=== PATIENT | male | born 1970 | race Caucasian/White ===

== ENCOUNTER 2024-03-02 11:54 | Emergency (ER) | payer MEDICARE, SELFPAY ==
--- NOTE | ~2024-03-02 | XR_ITS ---
EXAMINATION: XR chest 1V portable 03/02/2024 12:27 INDICATION: Respiratory infection PROCEDURE: AP portable chest COMPARISON: 10/16/2015 FINDINGS: The lungs are clear. The cardiomediastinal silhouette is within normal limits. There are no pleural effusions. There is no pneumothorax suspected. IMPRESSION: 1: NO ACUTE CARDIOPULMONARY DISEASE. Reviewed, dictated and finalized at location B.
[2024-03-02 12:03] VITALS: BP 140/100; PULSE 118; RESP 20; TEMP 36.6; O2SAT 97
--- NOTE | 2024-03-02 12:19 | ED.URI ---
HPI - URI/Sore Throat General Chief Complaint: Upper Respiratory Infection Stated Complaint: uri Time Seen by Provider: 03/02/24 12:03 History of Present Illness HPI Narrative: about 3 weeks ago patient started having URI symptoms, was given a course of steroids and antibiotics, and cough medicine, he overall 2 days are started having some abdominal pain, diarrhea, nausea , and fevers. Related Data Allergies Allergy/AdvReac Type Severity Reaction Status Date / Time Penicillins Allergy Mild Unknown Verified 03/02/24 12:24 garlic Allergy Unknown Dyspnea / Verified 03/02/24 12:24 SOB ibuprofen Allergy Unknown Hives / Verified 03/02/24 12:24 Red Face Review of Systems Review of Systems: All systems reviewed & are unremarkable except as noted in HPI and below Exam Narrative: EXAMINATION OF ORGAN SYSTEMS/BODY AREAS: Constitutional: Vital signs per nursing GENERAL:[No acute distress, non-toxic appearing.] HEAD: Normal with no signs of head trauma. EYES: EOMI, conjunctiva normal ENT: Hearing grossly intact LUNGS: Nonlabored breathing. wheezing bilaterally HEART: tachycardic ABD: [Soft], mildly tender to palpation left abdomen EXT: Normal range of motion SKIN: [No rashes or lesions.] NEURO: [Alert and oriented x 3. No gross focal sensory or strength deficits.] PSYCH: Normal affect Course Vital Signs Vital signs: Vital Signs Temperature 97.9 F 03/02/24 12:03 Pulse Rate 118 H 03/02/24 12:03 Respiratory Rate 20 03/02/24 12:03 Blood Pressure 140/100 H 03/02/24 12:03 Pulse Oximetry 97 03/02/24 12:03 Oxygen Delivery Room Air 03/02/24 12:03 Temperature 98.5 F 03/02/24 14:25 Pulse Rate 99 03/02/24 14:25 Respiratory Rate 20 03/02/24 14:25 Blood Pressure 134/67 03/02/24 14:25 Pulse Oximetry 96 03/02/24 14:25 Oxygen Delivery Room Air 03/02/24 12:03 MDM - URI/Sore Throat MDM Narrative Medical decision making narrative: ED COURSE AND MEDICAL DECISION MAKINM with cough and wheezing likely due to acute COPD exacerbation based on history and exam; also some GI symptoms. Patient is hemodynamically stable. Nebulizer treatments are started and steroids and zofran/loperamide given, IVF given Patient monitored in the ED for a couple of hours and on reevaluation is feeling significantly better. No respiratory distress or accessory muscle use. Good air movement bilateral lungs; abdomen soft and nontender. No longer nauseous and no more diarrhea. Prescriptions for [zofran, loperamide, steroid course] provided. He is given strict return precautions and patient is discharged in stable/improved condition. Lab Data 03/02/24 12:29 03/02/24 12:29 Labs: Lab Results 03/02/24 03/02/24 Range/Units 12:17 12:29 WBC 11.0 H (4.5-10.0) K/mm3 RBC 5.15 (4.6-6.20) M/mm3 Hgb 13.4 L (14.0-18.0) g/dL Hct 41.6 L (42.0-52.0) % MCV 80.8 (80-100) fl MCH 26.0 (26-34) pg MCHC 32.2 (32-36) g/dl RDW 14.9 H (11.5-14.5) % Plt Count 260 (150-375) k/mm3 MPV 10.3 (7.4-10.4) fl Immature Gran % (Auto) 0.3 (0-0.5) % Neut % (Auto) 76.7 H (45.5-73.1) % Lymph % (Auto) 13.1 L (18.3-44.2) % Union % (Auto) 9.0 H (2.6-8.5) % Eos % (Auto) 0.5 (0-4.4) % Baso % (Auto) 0.4 (0.2-1.2) % Lymph # (Auto) 1.45 (0.9-3.2) K/mm3 Union # (Auto) 1.0 H (0.1-0.6) K/mm3 Eos # (Auto) 0.1 (0-0.3) K/mm3 Baso # (Auto) 0.0 (0.0-0.1) K/mm3 Abs Immat Gran (auto) 0.03 (0.00-0.031) K/mm3 Absolute Neuts (auto) 8.5 H (1.3-6.7) K/mm3 Absolute Nucleated RBC 0.000 (0.0-0.012) K/mm3 Nucleated RBC % 0.0 (0.0-0.2) % Sodium 138 (137-145) mmol/L Potassium 3.9 (3.4-5.0) mmol/L Chloride 106 (98-107) mmol/L Carbon Dioxide 25 (22-30) mmol/L Anion Gap 7 (4-12) mmol/L BUN 8 L (9-20) mg/dL Creatinine 1.50 H (0.7-1.3) mg/dL Estim Creat Clear Calc 67 ml/min Estimated GFR 49 L (59 - )
[2024-03-02 12:25] VITALS: BP 132/75; PULSE 110; RESP 20; O2SAT 98
[2024-03-02] MEDS: predniSONE 20 MG TABLET 40 MG PO (12:30)
[2024-03-02] MEDS: LACTATED RINGERS 1,000 ML 999 ML IV CONT (12:31)
[2024-03-02 12:36] LABS: Basophils Percent Auto 0.4 % (0.2-1.2); Eosinophils Absolute Auto 0.1 K/mm3 (0-0.3); Eosinophils Percent Auto 0.5 % (0-4.4); Hematocrit 41.6 % (42.0-52.0); Hemoglobin 13.4 g/dL (14.0-18.0); Immature Granulocyte Absolute 0.03 K/mm3 (0.00-0.031); Immature Granulocyte Percent A 0.3 % (0-0.5); Lymphocytes Absolute Auto 1.45 K/mm3 (0.9-3.2); Lymphocytes Percent Auto 13.1 % (18.3-44.2); Mean Corpuscular HGB Conc 32.2 g/dl (32-36); Mean Corpuscular Volume 80.8 fl (80-100); Mean Platelet Volume 10.3 fl (7.4-10.4); Neutrophils Absolute Auto 8.5 K/mm3 (1.3-6.7); Neutrophils Percent Auto 76.7 % (45.5-73.1); Platelet Count Result 260 k/mm3 (150-375); Red Blood Count 5.15 M/mm3 (4.6-6.20); Red Cell Distribution Width 14.9 % (11.5-14.5)
[2024-03-02] MEDS: ALBUTEROL SULFATE NEB 2.5 MG/3 ML INH 15 MG INHALATION (12:37)
[2024-03-02 12:38] VITALS: PULSE 117; RESP 20
[2024-03-02] MEDS: IPRATROPIUM BR 0.02% INH SOLN 0.5 MG/2.5 ML VIAL 1 MG INHALATION (12:38)
[2024-03-02 12:50] LABS: Alanine Aminotransferase 29 U/L (6-50); Albumin Level 4.2 g/dL (3.5-5.1); Alkaline Phosphatase 115 U/L (38-126); Anion Gap 7 mmol/L (4-12); Aspartate Amino Transferase 35 U/L (17-59); Bilirubin,Total 0.7 mg/dL (0.2-1.3); Blood Urea Nitrogen 8 mg/dL (9-20); Calcium 9.6 mg/dL (8.4-10.2); Carbon Dioxide 25 mmol/L (22-30); Chloride 106 mmol/L (98-107); Estimated CRCL calculation 67 ml/min; Estimated Glomerular Filt Rate 49; Glucose 113 mg/dL (65-110); Potassium 3.9 mmol/L (3.4-5.0); Sodium 138 mmol/L (137-145)
[2024-03-02 13:08] LABS: Influenza A QL RT-PCR Negative (Negative); Influenza B QL RT-PCR Negative (Negative); RSV RNA, RT-PCR Negative (Negative); SARS-CoV-2 RNA PCR Negative (Negative)
[2024-03-02 13:52] VITALS: PULSE 127; RESP 20
[2024-03-02 14:11] VITALS: BP 128/74; PULSE 100; RESP 20; O2SAT 98
[2024-03-02 14:25] VITALS: BP 134/67; PULSE 99; RESP 20; TEMP 36.9; O2SAT 96
== END 2024-03-02 14:26 | disposition home or self-care (01) ==
PROVIDERS: Emergency Provider Emergency Medicine; PCP Nurse Practitioner
DX: J40 Bronchitis, not specified as acute or chronic (principal); R19.7 Diarrhea, unspecified; Z20.822 Contact with and (suspected) exposure to COVID-19
CPT/HCPCS: 36415; 71045; 80053; 85025; 87637; 94640; 96360; 99283; J7120; J7512

== ENCOUNTER 2024-03-03 18:37 | Emergency (ER) | payer MEDICARE, SELFPAY ==
--- NOTE | 2024-03-03 | ECG_ITS ---
[facility] [address] Test Date: 2024-03-03 Pat Name: Deangelo Sterling Department: Room: Gender: M Lead Mechanical Engineer: : [id number] Requested By: Ad Rodriguez Order Number: [id number] Jess MD: Harlan Holbrook M.D. Measurements Intervals [place] Rate: 123 P: 51 AR: 142 QRS: -24 QRSD: 80 T: 41 QT: 304 QTc: 436 Interpretive Statements SINUS TACHYCARDIA BORDERLINE LEFT AXIS DEVIATION [QRS AXIS < -20] POSSIBLE RIGHT VENTRICULAR CONDUCTION DELAY [RSR (QR) IN V1/V2] No previous ECG available for comparison Electronically Signed On 03-05-2024 14:13:42 CDT by Harlan Holbrook M.D.
--- NOTE | 2024-03-03 18:44 | ED.ALLEREA ---
HPI - Allergic Reaction General Chief complaint: Allergic Reaction <SENTHIL Burns Last Filed: 03/04/24 16:56> Stated complaint: swelling to tongue <SENTHIL Burns Last Filed: 03/04/24 16:56> Time Seen by Provider: 03/03/24 18:42 <SENTHIL Burns Last Filed: 03/04/24 16:56> Focused HPI: Patient is a 53-year-old male who presents the ED with report of tongue swelling. Patient reports he was seen in the ED here yesterday, diagnosed with viral syndrome, URI. He was prescribed prednisone, Zofran, loperamide, Bentyl. He states approximately 1 hour ago today he noticed a small area of discomfort on his left sided tongue. He then developed swelling of his tongue. He reports difficulty swallowing and speaking due to the swelling. Denies difficulty breathing. Patient took 50mg of benadryl prior to arrival. Patient denies history of similar reactions. He is also on lisinopril for history of hypertension. GENERAL: Well-appearing, morbidly obese with BMI of 40.7, and in no acute distress. HEAD: Normocephalic, atraumatic. ENT: Tongue is diffusely swollen, worse on L, nearly filling mouth. Small areas of abrasion / ulceration to L lateral edges of tongue. No swelling of lips. Able to visualize posterior pharynx with tongue depressor, no significant tonsillar hypertrophy. Uvula remains midline, nonedematous. CHEST: Clear to auscultation. ?No respiratory distress. No stridor. HEART: Regular rate and rhythm.? NEURO: ?Alert and oriented x3. Patient screened in triage and initial orders placed.? ?Additional care and disposition to be based upon?diagnostic testing and treatment. <SENTHIL Burns Last Filed: 03/04/24 16:56> Source: patient <SENTHIL Burns Last Filed: 03/04/24 16:56> Mode of arrival: ambulatory <SENTHIL Burns Last Filed: 03/04/24 16:56> Limitations: no limitations <SENTHIL Burns Last Filed: 03/04/24 16:56> History of Present Illness HPI narrative: HPI as per above. Pt has left tongue swelling. Pt is on lisinopril but did start bentyl, lomotil, and prednisone yesterday. Pt denies SOB or any rash. <Ad Michael Heredia III, DO - Last Filed: 03/03/24 22:33> Related Data Allergies/adverse reactions: Allergies Allergy/AdvReac Type Severity Reaction Status Date / Time Penicillins Allergy Mild Unknown Verified 03/02/24 12:24 garlic Allergy Unknown Dyspnea / Verified 03/02/24 12:24 SOB ibuprofen Allergy Unknown Hives / Verified 03/02/24 12:24 Red Face <SENTHIL Burns Last Filed: 03/04/24 16:56> Review of Systems Review of Systems: All systems reviewed & are unremarkable except as noted in HPI and below <Ad Michael Heredia III, DO - Last Filed: 03/03/24 22:33> Exam Const: General: healthy appearing and no acute distress <Ad Michael Heredia III, DO - Last Filed: 03/03/24 22:33> Nutritional Appearance: well nourished <Ad Michael Heredia III, DO - Last Filed: 03/03/24 22:33> Orientation/consciousness: patient oriented x3 <Ad Michael Heredia III, DO - Last Filed: 03/03/24 22:33> Limitations: no limitations <Ad Michael Heredia III, DO - Last Filed: 03/03/24 22:33> HENMT: Head: normal to inspection <Ad Michael Heredia III, DO - Last Filed: 03/03/24 22:33> Mouth: Yes Abnormal oral and palatal mucosa present (swelling to left side of tongue airway open and no pharyngeal edema) <Ad Michael Heredia III, DO - Last Filed: 03/03/24 22:33> Throat: posterior oropharynx normal <Ad Michael Heredia III, DO - Last Filed: 03/03/24 22:33> Eyes: Conjunctivae: conjunctivae normal <Ad Michael Heredia III, DO - Last Filed: 03/03/24 22:33> EOM: EOMs intact bilaterally <Ad Michael Heredia III, DO - Last Filed: 03/03/24 22:33> Neck: Neck: normal visual inspection, no lymphadenopathy and no meningeal signs <Ad Michael Heredia III, DO - Last Filed: 03/03/24 22:33> Resp: Effort & I
[2024-03-03] MEDS: EPINEPHrine HCL INJ 1 MG/ML AMPUL 0.3 MG IM (18:51)
[2024-03-03] MEDS: diphenhydrAMINE HCl INJ 50 MG/ML VIAL 25 MG IV PUSH (18:52)
[2024-03-03] MEDS: methylPREDNISolone SOD SUCC 125 MG VIAL IV PUSH (18:52)
[2024-03-03] MEDS: FAMOTIDINE 20 MG/2 ML VIAL IV PUSH (18:52)
[2024-03-03 19:12] VITALS: O2SAT 93
== END 2024-03-03 21:57 | disposition home or self-care (01) ==
PROVIDERS: Emergency Provider Emergency Medicine; PCP Nurse Practitioner
DX: T78.3XXA Angioneurotic edema, initial encounter (principal); B34.9 Viral infection, unspecified; I10 Essential (primary) hypertension; R00.0 Tachycardia, unspecified; R94.31 Abnormal electrocardiogram [ECG] [EKG]
CPT/HCPCS: 93005; 96372; 96374; 96375; 99284; J0171; J1200; J2919